=== PATIENT | female | born 1980 | race Caucasian/White ===

== ENCOUNTER 2016-12-12 21:48 | Emergency (ER) | payer MEDICAID ==
[~2016-12-12] VITALS: Ht 160 cm; Wt 84.1 kg
[~2016-12-12 21:48] MED LIST: ANTIVERT 25MG25 MG PO; ASPIRIN 81M81 MG/TA2 PO; BACTRIM DS 8001 TAB PO; CALCIUM CARB500 MG PO; CYMBALTA 60MG60 MG PO; FLEXERIL5 MG PO; FOLIC ACID 11 MG/TA1 PO; LIORESAL 1010 MG/TAB PO; MOTRIN 600600 MG/TAB PO; NEURONTIN300 MG/CAP PO; NORCO 325 MG-101 TAB PO; NORCO 325 MG-51 TAB PO; PEPCID 20MG TAB20 MG PO; PERCOCET 325 MG1 TA2 PO; PHENERGAN 25 TA25 MG PO; PREDNISONE20 MG PO; PREMARIN 0.60.625 M1 PO; PRENATAL1 TA1 PO; PROTONIX 40MG T40 MG PO; ULTRAM 50MG TAB50 MG PO; ZOFRAN ODT4 MG PO; ZOFRAN8 MG PO; [UNRECOGNIZED DRUG - CODE] PO
[2016-12-12 21:51] VITALS: BP 141/95; TEMP 98.1
[2016-12-12] MEDS ORDERED: NEURONTIN300 MG/CAP PO (21:56)
[2016-12-12] MEDS ORDERED: VITAMIN D 1001000 IU PO (21:57)
[2016-12-12] MEDS ORDERED: PROVIGIL200 MG PO (21:58)
[2016-12-12] MEDS ORDERED: BACTRIM DS 8001 TAB PO (21:58)
[2016-12-12] MEDS ORDERED: IMURAN 50MG TAB50 MG PO (21:59)
[2016-12-12 22:29] VITALS: PULSE 79
== END 2016-12-12 22:29 | disposition home or self-care (01) ==
LOC: COL.ER 21:48
DX: M25.511 Pain in right shoulder (principal)

== ENCOUNTER 2017-06-16 18:52 | Emergency (ER) | payer MEDICAID ==
[~2017-06-16] VITALS: Ht 160 cm; Wt 75.0 kg
[~2017-06-16 18:52] MED LIST changes: +IMURAN 50MG TAB50 MG PO; +PROVIGIL200 MG PO; +VITAMIN D 1001000 IU PO
[2017-06-16 18:55] VITALS: BP 131/83; PULSE 81; TEMP 98.4
[2017-06-16 19:49] LABS: PH 7 (5-8); SQUAMOUS EPITHELIAL None Seen /hpf; URINE APPEARANCE Clear; URINE BACTERIA Rare /hpf; URINE BILIRUBIN Negative (NEGATIVE); URINE BLOOD Negative (NEGATIVE); URINE COLOR Straw; URINE GLUCOSE Negative (NEGATIVE); URINE KETONE Negative (NEGATIVE); URINE RBC 0-2 /hpf; URINE UROBILINOGEN Negative (NEGATIVE); URINE WBC 0-2 /hpf
== END 2017-06-16 21:15 | disposition home or self-care (01) ==
LOC: COL.ER 18:52
PROVIDERS: Nurse Practitioner
DX: M54.6 Pain in thoracic spine (principal); D86.9 Sarcoidosis, unspecified; M54.5 Low back pain; Z87.891 Personal history of nicotine dependence; Z79.82 Long term (current) use of aspirin; Z87.442 Personal history of urinary calculi
CPT/HCPCS: J1170; J2360

== ENCOUNTER → 2017-08-03 | Outpatient (CLI) | payer MEDICAID | LOC: COL.RAD 07:29 | DX: R10.12 Left upper quadrant pain (principal) ==

== ENCOUNTER → 2017-08-06 | Outpatient (CLI) | payer MEDICAID | LOC: COL.RAD 09:33 | DX: G37.3 Acute transverse myelitis in demyelinating disease of central nervous system (principal); D86.9 Sarcoidosis, unspecified | CPT/HCPCS: A9585 ==

== ENCOUNTER → 2017-08-21 | Outpatient (CLI) | payer MEDICAID | LOC: COL.RAD 08:19 | DX: M43.17 Spondylolisthesis, lumbosacral region (principal); M43.06 Spondylolysis, lumbar region | CPT/HCPCS: Q9967 ==

== ENCOUNTER 2017-08-31 09:15 | Outpatient (RCR) | payer MEDICAID | END 2017-09-03 14:39 | disposition home or self-care (01) | LOC: WSPT 09:15 | DX: R29.6 Repeated falls (principal); D86.89 Sarcoidosis of other sites ==

== ENCOUNTER → 2017-10-11 | Day surgery (SDC) | payer MEDICAID ==
[2017-10-11] VITALS (7 sets, daily range): BP systolic 118–141; BP diastolic 46–95; PULSE 60–80; TEMP 98.1–98.7
[~2017-10-11] VITALS: Ht 160 cm; Wt 76.5 kg
[~2017-10-11] MED LIST changes: +ASPIRIN E.C. 8181 MG PO; +COLACE 100100 MG/CAP PO; +MOBIC15 MG PO; +MULTI VITAMINS1 TAB PO; +TEGRETOL100 M1 PO; +ZANTAC 150MG T150 MG PO
== END ==
LOC: SDCO 06:34
DX: K29.50 Unspecified chronic gastritis without bleeding (principal); K21.9 Gastro-esophageal reflux disease without esophagitis; G89.29 Other chronic pain; D86.9 Sarcoidosis, unspecified; Z87.442 Personal history of urinary calculi; R27.0 Ataxia, unspecified; R29.6 Repeated falls; Z87.891 Personal history of nicotine dependence; Z68.30 Body mass index [BMI] 30.0-30.9, adult; Z79.82 Long term (current) use of aspirin
CPT/HCPCS: J2704

== ENCOUNTER 2018-01-14 15:30 | Outpatient (RCR) | payer MEDICARE, MEDICAID ==
[2018-01-18] MEDS ORDERED: FLEXERIL 1010 MG/TAB PO (15:02)
[2018-01-18] MEDS ORDERED: VITAMIN C500 MG PO (15:03)
[2018-01-18] MEDS ORDERED: B-12 500 MCG (15:03)
== END 2018-02-28 | disposition home or self-care (01) ==
LOC: WSPT
DX: D86.89 Sarcoidosis of other sites (principal); R29.6 Repeated falls

== ENCOUNTER 2018-01-18 14:06 | Emergency (ER) | payer MEDICARE, MEDICAID ==
[~2018-01-18] VITALS: Ht 160 cm; Wt 84.1 kg
[2018-01-18 14:17] VITALS: TEMP 98
[2018-01-18 14:45] LABS: COLLECTION METHOD CLEAN CATCH
[2018-01-18 14:51] LABS: BASO % 0.2 % (0.0-2.0); GRAN # 9.4 (1.4-6.5); GRAN % 91.6 % (42.2-75.2); HEMATOCRIT 42.1 % (37.0-47.0); HEMOGLOBIN 14.9 g/dl (12.5-16.0); LYMPH # 0.6 (1.2-3.4); LYMPH % 5.9 % (20.0-51.0); MEAN CELL VOLUME 93 fl (80.0-100.0); MEAN CORPUSCULAR HEMOGLOBIN 33 pg (27.0-31.0); MEAN CORPUSCULAR HGB CONC 35 g/dl (33.0-37.0); MEAN PLATELET VOLUME 10.1 fl (7.4-10.4); MONO # 0.2 (0.1-0.6); MONO % 1.9 % (1.7-9.3); PLATELET COUNT 265 K/mm3 (130-400); RED BLOOD COUNT 4.53 M/mm3 (4.10-5.30); REDCELL DISTRIBUTION WIDTH-CV 12.2 % (11.5-14.5)
[2018-01-18 14:52] LABS: MUCOUS Present /lpf; PH 6 (5-8); SQUAMOUS EPITHELIAL 0-2 /hpf; URINE APPEARANCE Clear; URINE BACTERIA None Seen /hpf; URINE BILIRUBIN Negative (NEGATIVE); URINE BLOOD Negative (NEGATIVE); URINE COLOR Yellow; URINE GLUCOSE Negative (NEGATIVE); URINE KETONE Negative (NEGATIVE); URINE LEUKOCYTE ESTERASE Negative (NEGATIVE); URINE NITRATE Negative (NEGATIVE); URINE PROTEIN(semi-quant) Negative (NEGATIVE); URINE UROBILINOGEN Negative (NEGATIVE)
[2018-01-18 15:01] LABS: ALANINE AMINOTRANSFERASE 39 U/L (9-52); ALBUMIN 4.5 gm/dL (3.5-5.0); ALKALINE PHOSPHATASE 78 U/L (50-136); ANION GAP 14 mmol/L (7-16); AST,SGOT 28 U/L (15-37); BILIRUBIN,TOTAL 0.4 mg/dL (0.0-1.0); BLOOD UREA NITROGEN 13 mg/dL (7-17); CALCIUM 9.7 mg/dL (8.4-10.2); CARBON DIOXIDE 23 mmol/L (22-30); CHLORIDE 105 mmol/L (98-107); CREATININE, serum 0.74 mg/dL (0.52-1.25); GLUCOSE 114 mg/dL (74-106); POTASSIUM 4.1 mmol/L (3.4-5.0); SODIUM 143 mmol/L (137-145); TOTAL PROTEIN 7.5 gm/dL (6.4-8.2)
[2018-01-18 15:02] LABS: ACETAMINOPHEN < 10 ug/mL (10-30); ALCOHOL(ethanol),MEDICAL < 10 mg/dL; SALICYLATE < 1.0 mg/dL
[2018-01-18] MEDS ORDERED: FLEXERIL 1010 MG/TAB PO (15:02)
[2018-01-18] MEDS ORDERED: B-12 500 MCG (15:03)
[2018-01-18] MEDS ORDERED: VITAMIN C500 MG PO (15:03)
[2018-01-18 15:05] LABS: TRICYCLIC ANTIDEPRESS URINE NEGATIVE
[2018-01-18 21:40] VITALS: BP 122/72; PULSE 83
== END 2018-01-18 22:00 ==
LOC: COL.ER 14:06
PROVIDERS: Physician Assistant
DX: R45.851 Suicidal ideations (principal); F32.9 Major depressive disorder, single episode, unspecified; Z79.82 Long term (current) use of aspirin